=== PATIENT | female | born 1995 | race Caucasian/White ===

== ENCOUNTER 2020-11-01 13:09 | Emergency (ER) | payer BC ==
[~2020-11-01] VITALS: Ht 170.2 cm; Wt 67.8 kg
[2020-11-01 15:11] LABS: BASOPHILS % (AUTO) 1 % (0-1); EOSINOPHILS % (AUTO) 3 % (1-7); LYMPHOCYTES % (AUTO) 25 % (22-44); MEAN CORPUSCULAR HEMOGLOBIN 31.4 pg (27.0-34.8); MEAN CORPUSCULAR HGB CONC 34.8 g/dL (32.4-35.8); MEAN PLATELET VOLUME 10.6 fL (7.4-10.4); MONOCYTES % (AUTO) 5 % (2-9); NEUTROPHILS % (AUTO) 66 % (42-75); PLATELET COUNT 192 x10^3/uL (130-400); RED BLOOD COUNT 4.72 x10^6/uL (3.82-5.3); RED CELL DISTRIBUTION WIDTH 12.3 % (9.6-15.2)
[2020-11-01 15:15] LABS: ALBUMIN 4.5 g/dL (3.4-5.0); ANION GAP 7 mmol/L (5-15); CALCIUM 8.8 mg/dL (8.5-10.1); CHLORIDE 110 mmol/L (98-107); CREATININE 0.68 mg/dL (0.55-1.02)
[2020-11-01] MEDS ORDERED: CARBAMIDE PEROXIDE EAR DROPS 6.5%, 15ML ONE (15:44)
[2020-11-01] MEDS ORDERED: CARBAMIDE PEROXIDE EAR DROPS 6.5%, 15ML RIGHT EAR ONE (16:00)
--- NOTE | 2020-11-01 16:35 | NUR ---
ear lavage done. large amount of white pus like drainage out. pt tolerated well, states "I can hear a little more then before but not much".
[2020-11-01 17:07] VITALS: BP 101/48
== END 2020-11-01 17:10 | disposition home or self-care (01) ==
LOC: ED 13:39
DX: H61.21 Impacted cerumen, right ear (principal)
CPT/HCPCS: 36415; 69209; 70480; 80048; 82040; 85025; 99284